=== PATIENT | female | born 1960 ===

== ENCOUNTER 2018-03-15 13:55 | Emergency (ER) | payer SELFPAY ==
[2018-03-15 13:55] VITALS: BMI 27.6
[2018-03-15 14:24] VITALS: TEMP 98.1; O2SAT 100
[2018-03-15] MEDS ORDERED: Sodium Chloride 0.9% 500 ML IV ONE ×2 (15:36→16:56)
[2018-03-15 16:03] LABS: BASO # 0.1 K/uL (0.0-0.2); BASO % 0.8 % (0.0-2.0); EOS % 0.2 % (0.0-4.0); HEMOGLOBIN 13.3 g/dL (11.0-16.0); LYMPH # 1.5 K/uL (1.0-4.3); LYMPH % 16.1 % (20.0-40.0); MEAN CELL VOLUME 82.6 fL (81.0-99.0); MEAN CORPUSCULAR HEMOGLOBIN 28.3 pg (27.0-31.0); MEAN CORPUSCULAR HGB CONC 34.2 g/dL (33.0-37.0); MEAN PLATELET VOLUME 8.5 fL (7.2-11.7); MONO # 0.8 K/uL (0.0-0.8); MONO % 8.2 % (0.0-10.0); NEUT # 7.1 K/uL (1.8-7.0); NEUT % 74.7 % (50.0-75.0); NRBC % 0.1 % (0.0-2.0); RBC 4.69 Mil/uL (3.80-5.20); WHITE BLOOD COUNT 9.5 K/uL (4.8-10.8)
[2018-03-15 16:18] LABS: ALB/GLOB RATIO 1.2 (1.0-2.1); ALBUMIN 4.8 g/dL (3.5-5.0); ALT/SGPT 23 U/L (9-52); AST/SGOT 26 U/L (14-36); BLOOD UREA NITROGEN 10 mg/dL (7-17); CALCIUM 9.2 mg/dl (8.6-10.4); GFR AFRICAN-AMERICAN > 60; GFR NON-AFRICAN AMERICAN > 60
[2018-03-15 16:27] LABS: CK-MB 0.56 ng/mL (0.0-3.38)
[2018-03-15 16:43] LABS: SQUAMOUS EPITHIAL < 1 /hpf (0-5); URINE BACTERIA RARE (<OCC); URINE BILIRUBIN NEGATIVE (NEGATIVE); URINE BLOOD NEGATIVE (NEGATIVE); URINE CLARITY Clear (Clear); URINE COLOR Colorless (YELLOW); URINE GLUCOSE (UA) NORMAL (Normal); URINE LEUKOCYTE ESTERASE NEG Leu/uL (Negative); URINE PROTEIN NEGATIVE (NEGATIVE); URINE UROBILINOGEN NORMAL mg/dL (0.2-1.0)
[2018-03-15] MEDS ORDERED: Ibuprofen IV 400 MG in Dextrose 5% In Water 100 ML IVPB STA (16:57)
--- NOTE | 2018-03-15 16:59 | C.PDOC ---
Time Seen by Provider: 03/15/18 15:18 Chief Complaint (Nursing): High Blood Pressure Past Medical History Vital Signs: Last Vital Signs Temp 98.1 F 03/15/18 14:21 Pulse 128 H 03/15/18 14:21 Resp 20 03/15/18 14:21 BP 172/113 H 03/15/18 14:21 Pulse Ox 100 03/15/18 14:21 - Medical History PMH: HTN (stopped mos 2 months ago) - Social History Hx Alcohol Use: No Hx Substance Use: No - Immunization History Hx Tetanus Toxoid Vaccination: No Hx Influenza Vaccination: No Hx Pneumococcal Vaccination: No ED Course And Treatment - Laboratory Results Result Diagrams: 03/15/18 15:58 03/15/18 15:58 O2 Sat by Pulse Oximetry: 100 Disposition - Disposition
--- NOTE | 2018-03-15 17:00 | C.PDOC ---
History Of Present Illness 58-year-old female presents to the emergency department, sent from medical clinic after a routine visits for evaluation of elevated BP and heart rate. Patient is asymptomatic at this time. She denies chest pain, shortness of breath, palpitations, fever, cough, abdominal pain, or any other associated symptoms. Time Seen by Provider: 03/15/18 15:18 Chief Complaint (Nursing): High Blood Pressure History Per: Patient History/Exam Limitations: no limitations Quality Of Symptoms: Asymptomatic Severity: None Past Medical History Reviewed: Historical Data, Nursing Documentation, Vital Signs Vital Signs: Last Vital Signs Temp 98.1 F 03/15/18 14:21 Pulse 98 H 03/15/18 16:54 Resp 16 03/15/18 16:54 BP 162/88 H 03/15/18 16:54 Pulse Ox 100 03/15/18 22:42 - Medical History PMH: HTN (stopped mos 2 months ago) Family History: States: No Known Family Hx - Social History Hx Alcohol Use: No Hx Substance Use: No - Immunization History Hx Tetanus Toxoid Vaccination: No Hx Influenza Vaccination: No Hx Pneumococcal Vaccination: No Review Of Systems Constitutional: Negative for: Fever, Chills Cardiovascular: Negative for: Chest Pain, Palpitations Respiratory: Negative for: Cough, Shortness of Breath Gastrointestinal: Negative for: Nausea, Vomiting, Abdominal Pain Musculoskeletal: Negative for: Back Pain Skin: Negative for: Rash Neurological: Negative for: Weakness, Numbness, Headache, Dizziness Physical Exam - Physical Exam Appears: Well, Non-toxic, No Acute Distress Skin: Normal Color, Warm, Dry, No Rash Head: Atraumatic, Normacephalic Eye(s): bilateral: Normal Inspection, PERRL, EOMI Oral Mucosa: Moist Neck: Normal, Normal ROM, Other (no thyromegaly) Chest: Symmetrical Cardiovascular: Rhythm Regular (Tachycardic) Respiratory: Normal Breath Sounds, No Rales, No Rhonchi, No Wheezing Gastrointestinal/Abdominal: Normal Exam, Bowel Sounds, Soft, No Tenderness Back: Normal Inspection Extremity: Normal ROM, No Pedal Edema, No Calf Tenderness Pulses: Left Dorsalis Pedis: Normal, Right Dorsalis Pedis: Normal Neurological/Psych: Oriented x3 ED Course And Treatment - Laboratory Results Result Diagrams: 03/15/18 15:58 03/15/18 15:58 ECG: Interpreted By Me, Viewed By Me (sinus tachycardia 114 bpm, normal axis, no acute ST/T wave changes) ECG Interpretation: Abnormal O2 Sat by Pulse Oximetry: 100 (RA) Pulse Ox Interpretation: Normal Progress Note: Blood work, EKG, UA, UDS ordered and reviewed. Patient given IV NS bolus. Reevaluation Time: 17:30 Reassessment Condition: Improved (Patient's at bedside, states patient sometimes gets very nervous when she sees doctors, and gets elevated heart rate and BP. Symptoms likely due to white coat syndrome vs dehydration. Patient is well appearing, vitals have improved, and she is comfortable being discharged home. She was instructed to follow up in medical clinic in 1-2 days, and understands she should return to ED if she has any concerning symptoms.) Disposition Counseled Patient/Family Regarding: Studies Performed, Diagnosis, Need For Followup - Disposition Referrals: [facility] [Outside] Disposition: HOME/ ROUTINE Disposition Time: 17:30 Condition: STABLE Additional Instructions: FOLLOW UP IN THE MEDICAL CLINIC IN 1-2 DAYS DRINK PLENTY OF FLUIDS RETURN TO ER IF SYMPTOMS WORSEN Forms: [facility] (Citizen [place]), General Discharge Instructions Print Language: CYMRO - POA Present On Arrival: None - Clinical Impression Clinical Impression: Evaluation by medical service required, White coat syndrome without diagnosis of hypertension - Scribe Statement The provider has reviewed the documentation as recorded by the Scribe (Stephanie Lujan) All medical record entries made by the Scribe were at my direction and personally dictated by me. I have reviewed the chart and agree that the record accurately reflects my personal performance of the history, physical exam, medical decision making, and the department course for this patient. I have also personally directed, reviewed, and agree with the discharge instructions and disposition.
[2018-03-15 17:02] VITALS: BP 162/88; PULSE 98; RESP 16
[2018-03-15 17:17] LABS: BARBITURATES, UR NEGATIVE (NEGATIVE); BENZODIAZEPINES, UR NEGATIVE (NEGATIVE); OPIATES, UR NEGATIVE (NEGATIVE); PHENCYCLIDINE, UR NEGATIVE (NEGATIVE)
--- NOTE | 2018-03-17 21:03 | CARD ---
APPROVED REPORT EKG Measurement Heart [id number] <Conclusion> Sinus tachycardia Possible Left atrial enlargement Nonspecific ST abnormality Abnormal ECG
== END 2018-03-15 17:47 | disposition home or self-care (01) ==
LOC: C.ER 13:55
DX: R03.0 Elevated blood-pressure reading, without diagnosis of hypertension (principal)
CPT/HCPCS: 80053; 81001; 82550; 82553; 84443; 84484; 85025; 93005; 99283; G0480; J7040